=== PATIENT | male | born 1995 | race Caucasian/White ===

== ENCOUNTER 2017-10-03 09:23 | Emergency (ER) | payer BC ==
[2017-10-03 09:37] VITALS: RESP 16
--- NOTE | 2017-10-03 10:45 | C.PDOC ---
History Of Present Illness 22 year old male presents to the ED c/o lower back pain that started yesterday. Patient reports that he works at [employer] and yesterday he lifted a heavy box and developed pain in his back. Patient reports he used icy hot after. Patient denies bowel or urinary incontinence, saddle anesthesia, weakness, numbness. Time Seen by Provider: 10/03/17 10:18 Chief Complaint (Nursing): Back Pain History Per: Patient History/Exam Limitations: no limitations Onset/Duration Of Symptoms: Days Current Symptoms Are (Timing): Still Present Quality Of Discomfort: "Pain" Severity: None Previous Symptoms: Back Pain Associated Symptoms: None Exacerbating Factor(s): Nothing Recent travel outside of the [place]: No Additional History Per: Patient Past Medical History Reviewed: Historical Data, Nursing Documentation, Vital Signs Vital Signs: Last Vital Signs Temp 98.2 F 10/03/17 11:26 Pulse 66 10/03/17 11:26 Resp 16 10/03/17 11:26 BP 130/76 10/03/17 11:26 Pulse Ox 98 10/03/17 11:26 - Medical History PMH: Asthma Surgical History: No Surg Hx - [facility] Procedures CLOSURE SKIN & SUBCUTANEOUS NEC (09/05/13) Family History: States: Unknown Family Hx - Social History Hx Tobacco Use: No Hx Alcohol Use: No Hx Substance Use: No - Immunization History Hx Tetanus Toxoid Vaccination: No Hx Influenza Vaccination: No Hx Pneumococcal Vaccination: No Review Of Systems Constitutional: Negative for: Fever, Chills ENT: Negative for: Ear Pain Cardiovascular: Negative for: Chest Pain Respiratory: Negative for: Cough, Shortness of Breath Gastrointestinal: Negative for: Nausea, Vomiting, Abdominal Pain Genitourinary: Negative for: Incontinence Musculoskeletal: Positive for: Back Pain Skin: Negative for: Rash Neurological: Negative for: Weakness, Numbness Physical Exam - Physical Exam Appears: Non-toxic, No Acute Distress Skin: Normal Color, Warm, Dry Head: Atraumatic, Normacephalic Eye(s): bilateral: Normal Inspection Nose: No Discharge, No Deformity Oral Mucosa: Moist Neck: Normal ROM, Supple Chest: Symmetrical Cardiovascular: Rhythm Regular, No Murmur Respiratory: Normal Breath Sounds, No Rales, No Rhonchi, No Wheezing Gastrointestinal/Abdominal: Soft, No Tenderness, No Guarding, No Rebound Back: No Vertebral Tenderness, Other (Right parathoracic tenderness) Extremity: Normal ROM, No Pedal Edema, No Calf Tenderness, No Deformity, No Swelling Neurological/Psych: Oriented x3, Normal Speech, Normal Cognition Gait: Steady ED Course And Treatment O2 Sat by Pulse Oximetry: 100 (On RA) Pulse Ox Interpretation: Normal - Other Rad Thoracic Spine X-Ray X-Ray: Interpreted by Me, Viewed By Me Interpretation: Scoliosis noted, no fractures or dislocations seen Medical Decision Making Medical Decision Making: Impression : back pain Plan: * Flexeril 10 mg PO * Motrin 600 mg PO * Ultram 50 mg PO * Thoracic Spine X-Ray Patient was d/c home with a diagnosis of back pain. Disposition Counseled Patient/Family Regarding: Studies Performed, Diagnosis, Need For Followup, Rx Given - Disposition Referrals: [facility] [Outside] Disposition: HOME/ ROUTINE Disposition Time: 11:13 Condition: STABLE Additional Instructions: follow up with doctor in 2 days call to make an appointment continue medications at home return to ER if symptoms worsens or progress Prescriptions: Cyclobenzaprine [Cyclobenzaprine HCl] 10 mg PO TID PRN #12 tab PRN Reason: Muscle Spasm Naproxen [Naprosyn] 500 mg PO BID PRN #16 tab PRN Reason: Pain, Moderate (4-7) traMADol [Ultram] 50 mg PO TID PRN #10 tab PRN Reason: Pain, Moderate (4-7) Instructions: Back Pain (ED) Forms: [facility] (Spanish), General Discharge Instructions - Clinical Impression Clinical Impression: Thoracic back pain - Scribe Statement The provider has reviewed the documentation as recorded by the Scribe Jamal Oneil All medical record entries made by the Scribe were at my direction and personally dictated by me. I have reviewed the chart and agree that the record accurately reflects my personal performance of the history, physical exam, medical decision making, and the department course for this patient. I have also personally directed, reviewed, and agree with the discharge instructions and disposition.
[2017-10-03 11:28] VITALS: BP 130/76; PULSE 66; TEMP 98.2
[2017-10-03 11:53] VITALS: O2SAT 100
--- NOTE | 2017-10-03 12:46 | RAD ---
Thoracic spine three views History: Back pain. Comparison: None available. Findings: Mild dextroscoliotic curvature of the mid thoracic spine. Multilevel disc space narrowing throughout the mid thoracic spine. Suggestion of mild loss of height of several mid thoracic vertebral bodies. Impression: Degenerative changes. Correlation with thoracic spine MRI may be helpful if clinically indicated.
== END 2017-10-03 11:28 | disposition home or self-care (01) ==
LOC: C.ER 09:23
DX: M54.6 Pain in thoracic spine (principal)

== ENCOUNTER 2018-02-01 22:59 | Emergency (ER) | payer BC ==
[2018-02-01 23:46] VITALS: RESP 20
--- NOTE | 2018-02-02 00:49 | C.PDOC ---
History Of Present Illness 22 year old male presents to the with a complaint of left ankle pain after he twisted it while playing basketball earlier today. Patient states he jumped and landed on the ankle with inversion injury. Patient reports he has pain with ambulation. Denies head injury, weakness, or numbness. Time Seen by Provider: 02/01/18 23:51 Chief Complaint (Nursing): Lower Extremity Problem/Injury History Per: Patient History/Exam Limitations: no limitations Onset/Duration Of Symptoms: Hrs Current Symptoms Are (Timing): Still Present Recent travel outside of the [place]: No - Ankle/Foot Description Of Injury: Twisted Past Medical History Reviewed: Historical Data, Nursing Documentation, Vital Signs Vital Signs: Last Vital Signs Temp 98 F 02/02/18 00:50 Pulse 71 02/02/18 00:50 Resp 20 02/02/18 00:50 BP 122/71 02/02/18 00:50 Pulse Ox 100 02/02/18 03:11 - Medical History PMH: Asthma - [facility] Procedures CLOSURE SKIN & SUBCUTANEOUS NEC (09/05/13) Family History: States: Unknown Family Hx - Social History Hx Tobacco Use: No Hx Alcohol Use: Yes Hx Substance Use: No - Immunization History Hx Tetanus Toxoid Vaccination: No Hx Influenza Vaccination: No Hx Pneumococcal Vaccination: No Review Of Systems Musculoskeletal: Positive for: Foot Pain Neurological: Negative for: Weakness, Numbness Physical Exam - Physical Exam Appears: Non-toxic Skin: Normal Color, Warm, Dry Head: Atraumatic, Normacephalic Eye(s): bilateral: Normal Inspection Extremity: Capillary Refill (<2 seconds), Other (Swelling and tenderness to left lateral malleolus) Pulses: Left Dorsalis Pedis: Normal, Right Dorsalis Pedis: Normal Neurological/Psych: Oriented x3, Normal Speech, Normal Motor, Normal Sensation Gait: Halting (Able to take 2 steps at a time, complaining of a lot of pain) ED Course And Treatment O2 Sat by Pulse Oximetry: 100 (Room air) Pulse Ox Interpretation: Normal - Other Rad Left ankle x-ray X-Ray: Interpreted by Me, Viewed By Me Interpretation: No acute fractures or dislocation Progress Note: Left ankle x-ray ordered, results were negative. Motrin administered for pain with relief. Stephen wrap applied, patient given crutches with instructions for nonweight bearing and advised to follow up with PMD. Disposition Counseled Patient/Family Regarding: Diagnosis, Need For Followup, Rx Given - Disposition Referrals: [facility] [Outside] [facility] [place] [Outside] Disposition: HOME/ ROUTINE Disposition Time: 00:47 Condition: STABLE Additional Instructions: Leg elevation Stephen wrap for support Follow up with PMD or min clinic for ortho referral as needed Return to ER if worse Instructions: Ankle Sprain (DC) Forms: [facility] (Hong Konger), Work Excuse - Clinical Impression Clinical Impression: Left ankle sprain - PA / WHARF HAND / Resident Statement MD/DO has reviewed & agrees with the documentation as recorded. - Scribe Statement The provider has reviewed the documentation as recorded by the Scriblane Higuera All medical record entries made by the Frankie were at my direction and personally dictated by me. I have reviewed the chart and agree that the record accurately reflects my personal performance of the history, physical exam, medical decision making, and the department course for this patient. I have also personally directed, reviewed, and agree with the discharge instructions and disposition.
[2018-02-02 00:54] VITALS: BP 122/71; PULSE 71; TEMP 98
[2018-02-02 03:09] VITALS: O2SAT 100
--- NOTE | 2018-02-02 09:03 | RAD ---
PROCEDURE: Left Ankle Radiographs. HISTORY: r/o fx COMPARISON: None FINDINGS: BONES: Normal. No fracture. JOINTS: Normal. No osteoarthritis. Ankle mortise maintained. Talar dome intact SOFT TISSUES: Mild lateral soft tissue swelling. OTHER FINDINGS: None. IMPRESSION: No acute fracture. Lateral soft tissue swelling.
== END 2018-02-02 00:55 | disposition home or self-care (01) ==
LOC: C.ER 22:59
DX: S93.402A Sprain of unspecified ligament of left ankle, initial encounter (principal); X50.1XXA Overexertion from prolonged static or awkward postures, initial encounter; Y93.67 Activity, basketball; Y92.39 Other specified sports and athletic area as the place of occurrence of the external cause

== ENCOUNTER 2018-06-26 10:27 | Emergency (ER) | payer BC, OTHER ==
[2018-06-26 10:33] VITALS: BP 134/81; PULSE 90; RESP 18; TEMP 97.8; O2SAT 100
--- NOTE | 2018-06-26 10:40 | C.PDOC ---
History Of Present Illness 22 y/o male, with no significant PMHx, presents to ER complaining of right knee pain s/p injury yesterday. Pain is located over patella and patellar tendon and is worse when bending the knee. Patient was dancing with his friends and fell backwards, twisting his right knee. He states that his knee cap moved to the medial side of the knee but returned to normal once when he straightened his leg. Patient is able to bear weight but has pain on ambulation, has FROM of knee. Yesterday, he took Advil, used an anabel bandage and ice bag with mild relief of pain. No pain medications taken today. Denies numbness, tingling, bruising, hip pain, or ankle pain. Chief Complaint (Nursing): Lower Extremity Problem/Injury History Per: Patient History/Exam Limitations: no limitations Onset/Duration Of Symptoms: Days Current Symptoms Are (Timing): Still Present Past Medical History Reviewed: Historical Data, Nursing Documentation, Vital Signs Vital Signs: Last Vital Signs Temp 97.8 F 06/26/18 10:30 Pulse 90 06/26/18 10:30 Resp 18 06/26/18 10:30 BP 134/81 06/26/18 10:30 Pulse Ox 100 06/26/18 10:30 - Medical History PMH: Asthma - [facility] Procedures CLOSURE SKIN & SUBCUTANEOUS NEC (09/05/13) Family History: States: No Known Family Hx - Social History Hx Tobacco Use: No Hx Alcohol Use: Yes Hx Substance Use: No - Immunization History Hx Tetanus Toxoid Vaccination: No Hx Influenza Vaccination: No Hx Pneumococcal Vaccination: No Review Of Systems Except As Marked, All Systems Reviewed And Found Negative. Musculoskeletal: Positive for: Other (R Knee Pain). Negative for: Foot Pain Skin: Negative for: Bruising Neurological: Negative for: Weakness, Numbness Physical Exam - Physical Exam Appears: Non-toxic, No Acute Distress Skin: Warm, Dry, No Ecchymosis, Other (Erythema over R knee) Head: Atraumatic, Normacephalic Eye(s): bilateral: Normal Inspection, PERRL, EOMI Oral Mucosa: Moist Cardiovascular: Rhythm Regular, No Murmur Respiratory: Normal Breath Sounds, No Rales, No Rhonchi, No Wheezing Extremity: Tenderness (to both anteriorly over patella and medial joint line), Capillary Refill (less than 2 seconds), No Deformity, Swelling (moderate, of R knee medially, laterally, and anteriorly), Other (Limited ROM secondary to pain) Neurological/Psych: Oriented x3, Normal Speech, Normal Motor, Normal Sensation Gait: Steady ED Course And Treatment O2 Sat by Pulse Oximetry: 100 (RA) Pulse Ox Interpretation: Normal Medical Decision Making Medical Decision Making: Initial Plan: --Knee X-Ray --Ibuprofen --Knee immobilizer --Crutches Knee Xray: Small suprapatellar joint effusion, No dislocation or fracture - read by radiologist. On re-eval, exam unchanged. Pt reports decreased pain after medication. Discussed importance of followup with orthopedics with pt. Pt agrees and understands. Pt comfortable with, and stable for discharge. Pt offered crutches in the ED, refused. States he has crutches at home. Impression: Knee Sprain Plan: Keep knee in immobilizer until orthopedic followup Use crutches, weight bear as tolerated Ibuprofen every 6 hours with food for pain Followup with ortho within 2 days Followup with PMD within 2 days Return to ER for new or worsening symptoms Disposition Counseled Patient/Family Regarding: Studies Performed, Diagnosis, Need For Followup - Disposition Referrals: Kei Davis III, MD [Staff Provider] - Disposition: HOME/ ROUTINE Disposition Time: 11:46 Condition: IMPROVED Additional Instructions: Keep knee in immobilizer until orthopedic followup Use crutches, weight bear as tolerated Keep injured knee elevated, use ice every hour for 20 min, no direct skin contact Ibuprofen every 6 hours with food for pain Followup with ortho within 2 days Followup with PMD within 2 days Return to ER for new or worsening symptoms Instructions: Knee Sprain (DC) Forms: [employer] (Setswana), Work Excuse - Clinical Impression Clinical Impression: Knee sprain - 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 - Scribe Statement The provider has reviewed the documentation as recorded by the Jessicaiblane Wyatt All medical record entries made by the Scribe were at my direction and personally dictated by me. I have reviewed the chart and agree that the record accurately reflects my personal performance of the history, physical exam, medical decision making, and the department course for this patient. I have also personally directed, reviewed, and agree with the discharge instructions and disposition.
--- NOTE | 2018-06-26 13:10 | RAD ---
Right knee three views History: Injury. Comparison: None available. Findings: No evidence of acute displaced fracture or dislocation. Small suprapatellar joint effusion. Impression: Small suprapatellar joint effusion. If pain persists, consider MRI.
== END 2018-06-26 12:00 | disposition home or self-care (01) ==
LOC: C.ER 10:27
DX: S83.91XA Sprain of unspecified site of right knee, initial encounter (principal); W18.39XA Other fall on same level, initial encounter; Y93.41 Activity, dancing; Y92.320 Baseball field as the place of occurrence of the external cause

== ENCOUNTER 2018-12-13 11:25 | Emergency (ER) | payer OTHER ==
[2018-12-13 11:39] VITALS: BP 116/71; PULSE 62; RESP 18; TEMP 97.4; O2SAT 99
[2018-12-13] MEDS ORDERED: Belladonna-Phenobarbital ONE (12:22)
[2018-12-13] MEDS ORDERED: Belladonna-Phenobarbital PO STA (12:24)
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
== END 2018-12-13 14:40 | disposition home or self-care (01) ==
LOC: C.ER 11:25
DX: R19.7 Diarrhea, unspecified (principal)